=== PATIENT | female | born 1980 | race Caucasian/White ===

== ENCOUNTER → 2017-04-24 | Outpatient (CLI) | payer OTHER ==
[~2017-04-24] MED LIST: MODA100T2 PO; MULT-516 PO; PREN1TAB56
== END ==
LOC: STAR 13:01
PROVIDERS: ATTEND Obstetrics & Gynecology Gynecology
DX: Z02.9 Encounter for administrative examinations, unspecified (principal)

== ENCOUNTER 2017-05-01 10:07 | Day surgery (SDC) | payer OTHER ==
[~2017-05-01] VITALS: Ht 167.6 cm; Wt 68.5 kg
[~2017-05-01 10:07] MED LIST changes: +BUPIVACAINE/PF 0.25% ONE; +EPINEPHRINE 1 MG/ML, 1ML ONE
[2017-05-01 10:38] LABS: HCG UR LOT HCG706132
[2017-05-01] MEDS ORDERED: LACTATED RINGERS 1,000 ML IV SCH (10:39)
[2017-05-01 10:42] LABS: HCG UR OBC PASS
[2017-05-01 10:59] VITALS: BP 107/72
[2017-05-01] MEDS ORDERED: FENTANYL PF 250 MCG/5ML ONE (11:22)
[2017-05-01] MEDS ORDERED: MIDAZOLAM 1 MG/ML, 2ML ONE (11:22)
[2017-05-01] MEDS ORDERED: CEFAZOLIN 1,000 MG ONE ×2 (11:23)
[2017-05-01] MEDS ORDERED: ROCURONIUM 10 MG/ML,10ML ONE (11:23)
[2017-05-01] MEDS ORDERED: DEXAMETHASONE 4 MG/ML, 1ML ONE ×2 (11:23→11:24)
[2017-05-01] MEDS ORDERED: ONDANSETRON 2MG/ML, 2ML ONE (11:23)
[2017-05-01] MEDS ORDERED: PROPOFOL 10 MG/ML, 20ML ONE (11:23)
[2017-05-01] MEDS ORDERED: EPINEPHRINE 1 MG/ML, 1ML ONE (11:39)
[2017-05-01] MEDS ORDERED: BUPIVACAINE/PF 0.25% ONE (11:39)
[2017-05-01] MEDS ORDERED: SUCCINYLCHOLINE 20 MG/ML, 10ML ONE (12:04)
[2017-05-01] MEDS ORDERED: KETOROLAC 30 MG/1 ML ONE (12:21)
[2017-05-01] MEDS ORDERED: BUPIVACAINE/PF 0.25% INFIL ONE (12:42)
[2017-05-01] MEDS ORDERED: ACETAMINOPHEN 650 MG/20.3 ML UDC ONE (13:48)
[2017-05-01] MEDS ORDERED: OXYcodone 5 MG/5 ML ORAL.SOL UDC ONE (13:48)
[2017-05-01] MEDS ORDERED: FENTANYL PF 100 MCG/2ML IV PRN (14:00)
[2017-05-01] MEDS ORDERED: METOCLOPRAMIDE 5 MG/ML, 2ML IV PRN (14:00)
[2017-05-01] MEDS ORDERED: ACETAMINOPHEN 325 MG TABLET PO PRN (14:00)
[2017-05-01] MEDS ORDERED: OXYcodone 5 MG/5 ML ORAL.SOL UDC PO PRN (14:00)
== END 2017-05-01 16:30 ==
LOC: OUT 10:07
PROVIDERS: ATTEND Obstetrics & Gynecology Gynecology
DX: Z30.2 Encounter for sterilization (principal); N87.0 Mild cervical dysplasia; N80.0 Endometriosis of uterus
CPT/HCPCS: 57522; 58662; 58670; 81025; 88302; 88307; J0171; J0330; J0690; J1100; J1885; J2250; J2405; J2704; J3010; J3490; J7120

== ENCOUNTER 2020-01-30 22:23 | Emergency (ER) | payer MEDICAID, OTHER ==
[~2020-01-30] VITALS: Ht 167.6 cm; Wt 66.0 kg
[~2020-01-30 22:23] MED LIST changes: -BUPIVACAINE/PF 0.25% ONE; -EPINEPHRINE 1 MG/ML, 1ML ONE
[2020-01-30] MEDS ORDERED: MAALOX/HYOSCYAMINE/LIDOCAINE 45 ML BTL ONE (22:55)
[2020-01-30] MEDS ORDERED: MAALOX/HYOSCYAMINE/LIDOCAINE 45 ML BTL PO ONE (23:00)
[2020-01-30 23:38] LABS: BASOPHILS # (AUTO) 0.02 x10^3/uL (0-0.1); BASOPHILS % (AUTO) 0 % (0-1); EOSINOPHILS # (AUTO) 0.25 x10^3/uL (0-0.4); EOSINOPHILS % (AUTO) 4 % (1-7); LYMPHOCYTES # (AUTO) 1.13 x10^3/uL (1-3.4); LYMPHOCYTES % (AUTO) 17 % (22-44); MD NO; MEAN CORPUSCULAR HEMOGLOBIN 30.4 pg (27.0-34.8); MEAN CORPUSCULAR HGB CONC 33.3 g/dL (32.4-35.8); MEAN CORPUSCULAR VOLUME 91.3 fL (80-100); MONOCYTES # (AUTO) 0.32 x10^3/uL (0.2-0.8); MONOCYTES % (AUTO) 5 % (2-9); NEUTROPHILS % (AUTO) 74 % (42-75); PLATELET COUNT 211 x10^3/uL (130-400); RED BLOOD COUNT 4.52 x10^6/uL (3.82-5.3); RED CELL DISTRIBUTION WIDTH 13.6 % (9.6-15.2)
[2020-01-31 00:03] LABS: ALBUMIN 3.6 g/dL (3.4-5.0); ANION GAP 7 mmol/L (5-15); CALCIUM 9.4 mg/dL (8.5-10.1); CHLORIDE 107 mmol/L (98-107)
[2020-01-31 00:09] LABS: ALANINE AMINOTRANSFERASE 25 U/L (12-78); ALKALINE PHOSPHATASE 57 U/L (45-117); CREATININE 0.66 mg/dL (0.55-1.02); TROPONIN I < 0.015 ng/mL (0.000-0.045)
[2020-01-31 00:10] LABS: BILIRUBIN,TOTAL < 0.1 mg/dL (0.2-1.0)
[2020-01-31 00:55] VITALS: BP 101/63
== END 2020-01-31 00:57 | disposition home or self-care (01) ==
LOC: ED 23:14
DX: R07.2 Precordial pain (principal); K21.0 Gastro-esophageal reflux disease with esophagitis; K22.4 Dyskinesia of esophagus; R07.89 Other chest pain
CPT/HCPCS: 36415; 71045; 80053; 83690; 84484; 84703; 85025; 93005; 99285